=== PATIENT | male | born 1945 | race Caucasian/White ===

== ENCOUNTER → 2020-01-21 | Outpatient (CLI) | payer MEDICARE, OTHER | LOC: M.LAB 08:30 | PROVIDERS: ATTEND Internal Medicine Gastroenterology | DX: Z01.812 Encounter for preprocedural laboratory examination (principal); Z11.59 Encounter for screening for other viral diseases; Z86.010 Personal history of colon polyps; Z80.0 Family history of malignant neoplasm of digestive organs ==